=== PATIENT | female | born 1980 ===

== ENCOUNTER 2020-01-29 06:25 | Inpatient (IN) | payer OTHER ==
[~2020-01-29] VITALS: Ht 162.6 cm; Wt 78.9 kg
[2020-01-29] MEDS ORDERED: PRENATAL TABLE1 EAC1 PO (06:53)
[2020-01-31] MEDS ORDERED: IBU600 MG PO (19:07)
[2020-01-31] MEDS ORDERED: FERRO-SEQUELS1 EACH PO (19:07)
== END 2020-01-31 19:29 | disposition home or self-care (01) | DRG 807 ==
LOC: OB/GYN 06:25 → LDR 06:25 → OB/GYN 14:48
PROVIDERS: ADMIT Specialist; ATTEND Specialist
PROC: 10E0XZZ Delivery of Products of Conception, External Approach (ICD-10-PCS; principal; 2020-01-29)
PROC: 4A1HXFZ Monitoring of Products of Conception, Cardiac Rhythm, External Approach (ICD-10-PCS; 2020-01-29)
PROC: 3E033VJ Introduction of Other Hormone into Peripheral Vein, Percutaneous Approach (ICD-10-PCS; 2020-01-29)
DX: O90.81 Anemia of the puerperium (principal); Z37.0 Single live birth; Z3A.39 39 weeks gestation of pregnancy; Z20.828 Contact with and (suspected) exposure to other viral communicable diseases